=== PATIENT | male | born 1975 | race American Indian/Alaskan Native ===

== ENCOUNTER 2017-02-18 05:56 | Day surgery (SDC) | payer BC ==
[~2017-02-18 05:56] MED LIST: ANCEF/STERILE WATER 2 GM/20 ML IV NR; MARCAINE 0.25% INFILTRATI ONE; NACL 0.9% 1000 ML 1,000 ML IV SCH; PEPCID PO NR; VERSED IV NR
--- NOTE | 2017-02-18 07:14 | Anesthesia Consultation ---
Anesthesia Consult and Med Hx Date of service: 02/18/17 - Airway Anesthetic Teeth Evaluation: Good ROM Head & Neck: Adequate Mental/Hyoid Distance: Adequate Mallampati Class: Class I Intubation Access Assessment: Good - Pulmonary Exam CTA: Yes - Cardiac Exam Cardiac Exam: RRR - Pre-Operative Health Status ASA Pre-Surgery Classification: ASA2 Proposed Anesthetic Plan: General Nerve Block: Femoral - Pulmonary Hx Smoking: No Hx Sleep Apnea: No (ENEIDA PRE SCREEN LOW RISK) - Cardiovascular System Hx Hypertension: Yes (X 10 YRS) - Other Systems Hx Cancer: No
--- NOTE | 2017-02-18 07:15 | Anesthesia Day of Surgery ---
Anesthesia Day of Surgery - Day of Surgery Patient Examined: Yes Patient H&P Reviewed: Yes Patient is NPO: Yes
[2017-02-18] MEDS ORDERED: MARCAINE 0.25% INFILTRATI ONE ×3 (07:18→10:20)
[2017-02-18] MEDS ORDERED: DILAUDID ONE (07:36)
[2017-02-18] MEDS ORDERED: DIPRIVAN 10 MG/ML IV ONE (07:37)
[2017-02-18] MEDS ORDERED: XYLOCAINE MPF 2% ONE (07:38)
[2017-02-18] MEDS ORDERED: ADRENALIN ONE (07:59)
[2017-02-18] MEDS ORDERED: ADRENALIN IV ONE ×2 (08:34→08:55)
[2017-02-18] MEDS ORDERED: ZOFRAN IV PRN (08:38)
[2017-02-18] MEDS ORDERED: PERCOCET 5/325 PO PRN (08:38)
[2017-02-18] MEDS ORDERED: MORPHINE IV PRN (08:38)
[2017-02-18] MEDS ORDERED: TORADOL IV PRN (08:38)
[2017-02-18] MEDS ORDERED: NACL 0.9% 1000 ML 1,000 ML ONE (09:36)
[2017-02-18] MEDS ORDERED: ZOFRAN ONE (10:18)
--- NOTE | 2017-02-18 10:33 | Short Stay Summary ---
Short Stay Documentation - Allergies and Medications Current Medications: Allergies No Known Allergies Allergy (Verified 02/02/17 14:15) Home Medications Medication Instructions Recorded Confirmed Last Taken Type Amlodipine Besylate/Benazepril 1 cap PO DAILY 02/02/17 02/18/17 02/18/17 05:45 History [Amlodipine-Benazepril 5-20 mg] Hydrochlorothiazide [Hctz] 12.5 mg PO QDAY 02/02/17 02/18/17 02/18/17 05:45 History Active Medications Cefazolin Sodium (Ancef/Sterile Water 2 Gm/20 Ml) 2 gm IV PREOP NR Stop: 02/18/17 23:59 Famotidine (Pepcid) 20 mg PO PREOP NR Stop: 02/18/17 23:45 Last Admin: 02/18/17 07:02 Dose: 20 mg Sodium Chloride (Nacl 0.9% 1000 Ml) 1,000 mls @ 100 mls/hr IV DIRECT DOM Last Admin: 02/18/17 07:06 Dose: 100 mls/hr Ketorolac Tromethamine (Toradol) 30 mg IV ONCE PRN PRN Reason: Pain, Moderate (4-6) Stop: 02/18/17 23:59 Midazolam HCl (Versed) 2 mg IV PREOP NR Stop: 02/18/17 23:45 Last Admin: 02/18/17 07:25 Dose: 2 mg Morphine Sulfate (Morphine) 2 mg IV Q10MIN PRN PRN Reason: Pain, Moderate (4-6) Stop: 02/18/17 18:00 Ondansetron HCl (Zofran) 4 mg IV ONCE PRN PRN Reason: Nausea And Vomiting Stop: 02/18/17 18:00 Oxycodone/Acetaminophen (Percocet 5/325) 1 tab PO ONCE PRN PRN Reason: Pain, Moderate (4-6) Stop: 02/18/17 16:00 Short Stay Discharge Plan Activity: advance as tolerated Weight Bearing Status: Partial Weight Bearing Diet: regular Wound: change dressing, per your surgeon's advice Durable Medical Equipment Needed Upon Discharge: Crutches (2 crutches) Additional Instructions: follow DC INSTRUCTION SHEET\ ICE PACS IN KNEE KNEE LOCKED IN FULL EXTENSION FOR 1 WEEK FOLLOW UP IN 10 DAYS PAIN MEDS PRN 2 CRUTCHES AT ALL TIMES, WBAT right LE Follow up with: MACHO PETERSON MD [Primary Care Provider] - 10 Days JEREL BRADFORD MD [Staff Physician] - 10 Days
--- NOTE | 2017-02-18 10:53 | Post Anesthesia Evaluation ---
- Post Anesthesia Evaluation Patient Participated: Yes Airway Patent: Yes Stable Respiratory Function: Yes Nausea/Vomiting: No Temp > 96.8F: Yes Pain Manageable: Yes Adequeate Hydration: Yes Anesthesia Complications: No Block Receding Appropriately: Not Applicable Patient on Ventilator: No
--- NOTE | 2017-02-18 12:41 | XRay Report ---
Right knee, 2 views in the OR. History: Status post ACL repair. Findings: Orthopedic screws are seen in the normal position status post ACL repair. The knee is otherwise unremarkable and appears normal.
[2017-02-18 13:46] VITALS: BP 116/66
--- NOTE | 2017-03-01 18:55 | Operative Report ---
PREOPERATIVE DIAGNOSES: 1. Right knee complete anterior cruciate ligament tear. 2. Anterior horn lateral meniscus tear, complex. PROCEDURES PERFORMED: 1. Arthroscopic right knee anterior cruciate ligament reconstruction with use of bone-patellar bone allograft. 2. Partial lateral meniscectomy, anterior horn, right knee. 3. Partial synovectomy. SURGEON: Maxi Trent MD [employer] MACHINE OPERATOR: Aniceto Hennessy, operative tech COMPLICATIONS: None. BLOOD LOSS: Minimal. BRIEF HISTORY: The patient had a painful swelling, right knee with diagnosis of ACL tear, complete with the lateral meniscus tear, who opted to go for surgical intervention. Risks and benefits discussed, informed consent obtained, and brought to the hospital for the above procedure. DETAILS OF THE OPERATIVE REPORT: The patient was taken to the operating room under general endotracheal anesthesia. All bony prominences were carefully padded and he was placed supine on the operating table. The patient was positioned on the left position. After the thigh tourniquet was placed, the left part of the bed was bended. All the bony prominences were carefully padded. The left lower extremities also were padded. Right knee, right lower extremity was prepped and draped in sterile fashion. The patient was given antibiotic half an hour before the procedure. High lateral portal was created. Diagnostic arthroscopy was performed to confirm the tear of the ACL. Once this was confirmed under direct visualization, the medial portal was created. The allograft was opened and thawed. Once this was thawed, we did a diagnostic arthroscopy. The medial meniscus was intact. The medial compartment was pretty well pristine. Significant synovial hypertrophy was present in the intercondylar notch area and using synovial resector, the partial synovectomy was performed. The ACL stump was debrided, which was torn. There was no attachment of the ACL on the lateral wall. Partial lateral meniscectomy ____ present. There was complex tear present with significant shortening of the anterior horn although lateral meniscus and a partial meniscectomy were performed. When preparing for ACL reconstruction, bone-patellar bone allograft ____ preoperatively. When necessary debridement of the ACL was performed and started ____ notchplasty. Notchplasty was performed to satisfaction. The tibial insertion of the ACL footprint was identified using the guide ____ tunnel. We made sure the guide was placed about 2 fingerbreadth distal to the joint line and 1 fingerbreadth medial to the ____ portal. Once the identification of ____ on the proximal medial tibia and the incision was placed up to the ostium. Using periosteal elevator, soft tissue was elevated. We prepared for 10 mm graft. Tibia was placed in the central point of the tibial stump and it was placed parallel to the ____ and about 2 fingerbreadths distal to the joint line and 1 fingerbreadth medial to the tibial tubercle. The guide pin was then placed. The position was checked and found to be correct and acceptable and necessary pictures were taken. We then reamed ____ reamer. Care was taken to protect the PCL and ____ shaver was used to clean the debris off the tibial tunnel and the rasp was used to rasp the posterior aspect of the wall to allow ____. Using a portal technique and flexible [employer] instrumentation from [employer], the ____ portal was used. Using a flexible [employer] and flexible femoral tunnel ____ from an anteromedial side. The guide was placed anterior to the 7 mm reference point giving us a 2 mm back wall. The flexible guidewire was placed and brought ulnarly on the lateral aspect of the thigh. A flexible reamer was then placed and marked a little bit to get an idea of the back wall, reamed up to 10 to get an idea how much bone is remaining. We were completely safe. The posterior wall ____ approximately 2 mm wall was remaining. We reamed up to 25 mm. We made a bone graft 25 mm on each side and tacked with #5 Ethibond sutures on the femoral side, #1 suture through the bone plugs, #5 Ethibond sutures, one on the femoral side and 3 on the tibial side. ____ tendon graft length was about 40 mm. We made 25 mm bone plugs. A ____ was passed through the ____ it was inserted through the ____ portal on the femoral side. ____ was placed without ____ using a grasper brought to the tibial side and grasper was passed from tibial tunnel. Then gradually directing, using the probe, we directed it to the femoral side. The graft entered without any problem. Once the graft was entered, we made a notch for the femoral tunnel for the interference screw fixation. Now wire was then placed and an interference screw was placed in the proper position. We had great fixation. The tracking of the knee was then performed and the head was brought in extension and interference screw was placed on the tibial side after ____ wire. Great fixation was achieved. Pictures were taken throughout the procedure. The ____ Hernán test was negative for ____. We had no graft ____. The fluid was then evacuated and portal sites were closed with 3-0 nylon interrupted sutures and incision made in the proximal tibia. It was closed with 1-0 and 2-0 Vicryl interrupted sutures. Skin was closed with Monocryl and necessary dressing was done with Xeroform, 4 x 4s, ABD, cast padding and Timo wrap and immobilizer was applied. The patient tolerated the procedure well, shifted to recovery room in stable condition. Sponge and needle count was correct. After the anesthesia and before the incision, the pivot shift test was performed was positive and there was significant laxity under the Hernán and anterior drawer as well. After the procedure, the patient had significant stability of the knee and the Hernán was negative. The patient tolerated the procedure well, shifted to recovery room in stable condition. Sponge and needle count was correct. JOB# [id number] MARICARMEN/FREEMAN
== END 2017-02-18 13:40 | disposition home or self-care (01) ==
LOC: OR 05:56
PROVIDERS: ATTEND Orthopaedic Surgery
DX: S83.271A Complex tear of lateral meniscus, current injury, right knee, initial encounter (principal); S83.511A Sprain of anterior cruciate ligament of right knee, initial encounter; I10 Essential (primary) hypertension; X58.XXXA Exposure to other specified factors, initial encounter; Y93.89 Activity, other specified; Y92.89 Other specified places as the place of occurrence of the external cause; Y99.8 Other external cause status
CPT/HCPCS: 29881; 29888; 36415; 64450; 73560; 84132; C1713; C1762; J0171; J0690; J1170; J1885; J2250; J2405; J2704; J7030